=== PATIENT | female | born 1990 | race Caucasian/White ===

== ENCOUNTER 2018-11-27 18:12 | Outpatient (CLI) | payer BC ==
--- NOTE | 2018-11-27 18:10 | NUR ---
Ambulatory to unit for assessment, accompanied by spouse. Oriented to room, monitor, plan of care by Garth GOODEN. Pt reports ?SROM.
[2018-11-27 18:20] VITALS: BP 126/75; PULSE 56
--- NOTE | 2018-11-27 18:20 | NUR ---
Amniotest neg per Garth GOODEN
--- NOTE | 2018-11-27 18:20 | NUR ---
Initial SVE by Garth GOODEN and reported in bedside shift report and annotated by same on EFM tracing.
--- NOTE | 2018-11-27 18:39 | NUR ---
Off monitor, up to ambulate on unit.
[2018-11-27 19:20] VITALS: BP 137/72; PULSE 57; TEMP 98
[2018-11-27] MEDS ORDERED: PRENATAL MVI (19:33)
[2018-11-27 20:00] VITALS: BP 126/78; PULSE 59
--- NOTE | 2018-11-27 20:10 | NUR ---
Discharge instructions reviewed with pt and spouse, questions invited and answered. Ambulatory off unit at 2024
== END 2018-11-27 20:25 | disposition home or self-care (01) ==
LOC: LDRO 18:12 → LDR 18:12 → LDRO 20:25
DX: O42.92 Full-term premature rupture of membranes, unspecified as to length of time between rupture and onset of labor (principal); Z3A.38 38 weeks gestation of pregnancy
CPT/HCPCS: OP

== ENCOUNTER 2018-11-28 00:22 | Inpatient (IN) | payer BC ==
[~2018-11-28] VITALS: Ht 170.2 cm; Wt 68.2 kg
[2018-11-28] VITALS (56 sets, daily range): BP systolic 95–142; BP diastolic 53–76; PULSE 49–101; TEMP 97.4–98.9
[~2018-11-28 00:22] MED LIST: PRENATAL MVI
--- NOTE | 2018-11-28 00:30 | NUR ---
G1L0. 38-4. Ambulatory to LDR 6 with spouse. Clean gown on. EFM and TOCO explained and applied. Pt was just discharged from hospital at 2030 tonight and states her contractions just have continued to become more intense even after taking tylenol, benadryl and taking warm bath for an hour. Pt denies LOF or vaginal bleeding. Reports good movement. SVE 3-4/80/-1. Plan of care explained to pt and who verbalize understanding. Call light within reach. 0039: called and updated on pts status. Admit orders received. See physican notification. Pt updated on admit orders and plan of care. Questions answered.
--- NOTE | 2018-11-28 00:52 | NUR ---
IV started and labs obtained via IV site. LR bolus infusing without difficulties. Pt requesting epidural at this time. Tashi FRUIT LOADER notified.
[2018-11-28 01:05] LABS: BASO % 0.2 % (0.0-2.0); EOS % 0.1 % (0-4.0); GRAN # 11.6 (1.4-6.5); GRAN % 83.1 % (42.2-75.2); HEMATOCRIT 35.3 % (37.0-47.0); HEMOGLOBIN 12.6 g/dl (12.5-16.0); LYMPH # 1.3 (1.2-3.4); MEAN CELL VOLUME 91 fl (80.0-100.0); MEAN CORPUSCULAR HEMOGLOBIN 33 pg (27.0-31.0); MEAN CORPUSCULAR HGB CONC 36 g/dl (33.0-37.0); MEAN PLATELET VOLUME 10.5 fl (7.4-10.4); MONO # 0.9 (0.1-0.6); MONO % 6.7 % (1.7-9.3); PLATELET COUNT 182 K/mm3 (130-400); RED BLOOD COUNT 3.88 M/mm3 (4.10-5.30); REDCELL DISTRIBUTION WIDTH-CV 12.4 % (11.5-14.5)
--- NOTE | 2018-11-28 01:19 | NUR ---
Pt up to bathroom to void. Monitors removed. 0126: Tashi RADIOLOGY PHYSICIAN ASSISTANT at bedside for epidural placement and explained procedure. Questions answered. Pt sitting on edge of bed. Difficulty tracing FHR due to maternal position. Pulse ox applied and tracing well. 0133: Single shot administered by Tashi PURVIS, see anesthesia records. 0139: Pt repositioned to wedge left position. Plan of care and safety precautions explained. 0157: three recurrent late decels noted. RN at beside observing FHR strip. LR bolus infusing. Pt repositioned to wedge right position. Will continue to monitor.
--- NOTE | 2018-11-28 02:10 | NUR ---
Pt laid flat for mcrae placement. Clear/yellow urine return noted. SVE 4/80/-1. Pericare provided and pt repositioned to wedge right per request. Plan of care explained to pt and pt verbalized understanding.
--- NOTE | 2018-11-28 06:30 | NUR ---
Report from Jaswinder GOODEN to assume care of patient at this time.
--- NOTE | 2018-11-28 07:30 | NUR ---
Patient comfortable with epidural. SVE /-1, BBOW, bloody show on exam glove. Pericare performed, pads changed. Patient repositioned to right tilt with peanut ball in place. Denies pain or needs. Encouraged to rest. Call light within reach.
--- NOTE | 2018-11-28 09:00 | NUR ---
Roles to bedside to discuss plan of care with patient. AROM at 0857, small amount of clear fluid noted. SVE 8-/-1, bloody show noted. Patient repositioned to right tilt with peanut ball in place. Instructed to notify RN with rectal pressure, pain, or urge to push.
--- NOTE | 2018-11-28 09:45 | NUR ---
Patient calls out reporting rectal pressure with contraction. SVE 8-9/100/0, bloody show noted on exam glove. Pericare performed. Patient repositioned to left tilt with peanut ball in place. Instructed to notify RN with increased pressure or pain. Call light within reach.
--- NOTE | 2018-11-28 10:45 | NUR ---
Patient reports continued rectal pressure with contractions. SVE AL/100/+1, bloody show noted. Patient repositioned to far right lateral with peanut ball in place. Encouraged to notify RN with increased rectal pressure, urge to push, or pain. Verbalized understanding. at bedside. Call light within reach.
--- NOTE | 2018-11-28 11:30 | NUR ---
Patient sleeping upon RN entry to room. NELL AL/+2. Patient repositioned to left lateral with peanut ball in place. Will notify for further orders.
--- NOTE | 2018-11-28 11:50 | NUR ---
1150: to bedside. Melissa RN to bedside as nursery nurse. Gregory discontinued. SVE Complete. Initial/practice push. Provider remains at bedside along with RN during pushing until delivery. 1219: Pitocin started at 2mu/min per orders. 1238: Spontaneous vaginal delivery of viable female infant assisted by . to abdomen, care assumed by Melissa RN. Pitocin stopped. 1243: Spontaneous delivery of placenta assisted by . Pitocin infusing at 333ml/hr. Fundus firm at D3, scant lochia. 1st degree repaired using 3-[address]-1 by . 1250: Ice pack to perineum. Fundus firm, lochia WNL. Recovery started.
--- NOTE | 2018-11-28 13:50 | NUR ---
Patient tolerates juice and crackers, reports ordering regular diet. Denies pain or needs at this time. Call light within reach.
--- NOTE | 2018-11-28 14:20 | NUR ---
Patient tolerates regular diet. Unable to lift and hold left leg at this time. Will continue to monitor and reevaluate in 30 minutes. Patient encouraged to rest. Call light within reach.
--- NOTE | 2018-11-28 15:00 | NUR ---
Patient up to bathroom with RN stand by assist x2. Patient unable to void at this time. Fundus firm, lochia WNL. New gown on. Underwear, peripad, and ice pack in place. Patient to Room 208 via wheelchair. Oriented to room, plan of care discussed. Questions answered. at bedside, call light within reach.
--- NOTE | 2018-11-28 16:15 | NUR ---
Patient up to bathroom with RN stand by assist. Patient unable to void. Patient returns to bed, unable to assess fundus, bladder distended. Straight catheter used to drain 1000ml pale clear yellow urine at this time. Pericare performed, ice pack in place.
[2018-11-29 00:15] VITALS: BP 118/72; PULSE 75; TEMP 98.6
[2018-11-29 05:00] VITALS: BP 102/45; PULSE 72; TEMP 98.7
[2018-11-29 07:10] VITALS: BP 100/57; PULSE 66; TEMP 98.1
[2018-11-29] MEDS ORDERED: MOTRIN 600600 MG/TAB PO (08:41)
[2018-11-29 10:12] VITALS: BP 103/57; PULSE 80; TEMP 97.8
--- NOTE | 2018-11-29 12:00 | NUR ---
Initial visit; Parents thanked Timber Packer for offering congratulations and God's blessings for the of their daughter. Timber Packer thanked them for choosing [facility] [place].
[2018-11-29 19:15] VITALS: BP 103/56; PULSE 71; TEMP 98.3
--- NOTE | 2018-11-29 23:25 | NUR ---
2325- Patient called out at this time. Nurse at bedside. Patient states/has c/o possible UTI, states she is frequently urinated and that it samaniego. 2327- Ice packs, tucks pads, cranberry juice and PO medication brought to bedside at this time for comfort interventions. 2330- Patient denies any further needs at this time, patient states that she will try to rest.
[2018-11-30 03:45] VITALS: BP 130/76; PULSE 77; TEMP 97.7
[2018-11-30 06:30] VITALS: BP 94/72; PULSE 63; TEMP 98.2
[2018-11-30 06:45] LABS: COLLECTION METHOD CLEAN CATCH
[2018-11-30 06:54] LABS: PH 6 (5-8); SQUAMOUS EPITHELIAL None Seen /hpf; URINE APPEARANCE Cloudy; URINE BACTERIA Rare /hpf; URINE BILIRUBIN Negative (NEGATIVE); URINE BLOOD 3+ (NEGATIVE); URINE COLOR Red; URINE GLUCOSE Negative (NEGATIVE); URINE KETONE Negative (NEGATIVE); URINE LEUKOCYTE ESTERASE 2+ (NEGATIVE); URINE NITRATE Negative (NEGATIVE); URINE PROTEIN(semi-quant) 2+ (NEGATIVE); URINE RBC >50 /hpf; URINE UROBILINOGEN Negative (NEGATIVE); URINE WBC >50 /hpf
[2018-11-30] MEDS ORDERED: CEPHALEXIN500 M1 PO (08:43)
[2018-11-30 10:05] LABS: BASO % 0.3 % (0.0-2.0); EOS # 0.2 (0.0-0.7); EOS % 1.4 % (0-4.0); GRAN # 10.9 (1.4-6.5); GRAN % 83.4 % (42.2-75.2); LYMPH # 1.1 (1.2-3.4); LYMPH % 8.1 % (20.0-51.0); MEAN CORPUSCULAR HGB CONC 34 g/dl (33.0-37.0); MEAN PLATELET VOLUME 10.4 fl (7.4-10.4); MONO # 0.8 (0.1-0.6); MONO % 6.1 % (1.7-9.3); PLATELET COUNT 144 K/mm3 (130-400); RED BLOOD COUNT 3.18 M/mm3 (4.10-5.30); REDCELL DISTRIBUTION WIDTH-CV 12.7 % (11.5-14.5)
[2018-11-30 10:09] LABS: HEMATOCRIT 30.7 % (37.0-47.0); HEMOGLOBIN 10.4 g/dl (12.5-16.0); MEAN CELL VOLUME 97 fl (80.0-100.0); MEAN CORPUSCULAR HEMOGLOBIN 33 pg (27.0-31.0)
== END 2018-11-30 10:45 | disposition home or self-care (01) | DRG 797 ==
LOC: LDRO 00:22 → OB 00:43 → LDR 00:43 → OB 15:00
PROVIDERS: Student in an Organized Health Care Education/Training Program; ADMIT Obstetrics & Gynecology
PROC: 10E0XZZ Delivery of Products of Conception, External Approach (ICD-10-PCS; principal; 2018-11-28)
PROC: 10D17ZZ Extraction of Products of Conception, Retained, Via Natural or Artificial Opening (ICD-10-PCS; 2018-11-28)
PROC: 10D17ZZ Extraction of Products of Conception, Retained, Via Natural or Artificial Opening (ICD-10-PCS; 2018-11-28)
PROC: 0HQ9XZZ Repair Perineum Skin, External Approach (ICD-10-PCS; 2018-11-28)
DX: O70.0 First degree perineal laceration during delivery (principal); O86.20 Urinary tract infection following delivery, unspecified; Z37.0 Single live birth; Z3A.38 38 weeks gestation of pregnancy; O69.81X0 Labor and delivery complicated by cord around neck, without compression, not applicable or unspecified; O73.1 Retained portions of placenta and membranes, without hemorrhage
CPT/HCPCS: J2590; J2795; J7120